=== PATIENT | female | born 1965 | race Caucasian/White ===

== ENCOUNTER 2024-06-24 08:43 | Day surgery (SDC) | payer OTHER ==
[2024-06-18 12:49] VITALS: BMI 21.1
[2024-06-24] MEDS ORDERED: Dexamethasone 4 mg/ml Vial ONE (10:34)
[2024-06-24] MEDS ORDERED: Lidocaine 2% PF 5 ML VIAL ONE (10:34)
[2024-06-24] MEDS ORDERED: Ondansetron PF 4 MG/2 ML Vial ONE (10:34)
[2024-06-24] MEDS ORDERED: fentaNYL 50 mcg/mL 1 mL Vial ONE (10:34)
[2024-06-24] MEDS ORDERED: PROPOFOL 20 ML ONE (10:34)
[2024-06-24] MEDS ORDERED: Bupivacaine PF 0.5% 30 ML VIAL ONE (12:11)
[2024-06-24] MEDS ORDERED: CEFAZOLIN 2 GM VIAL ONE (12:11)
[2024-06-24] MEDS ORDERED: Promethazine HCl 25 MG/ML VIAL IM PRN (12:15)
[2024-06-24] MEDS ORDERED: Ondansetron PF 4 MG/2 ML Vial IVP PRN (12:15)
[2024-06-24] MEDS ORDERED: Zolpidem Tartrate 5 MG TAB PO PRN (12:15)
[2024-06-24] MEDS ORDERED: Ropivacaine 0.2% 550 ML 550 ML NERVE BLCK SCH (12:15)
== END 2024-06-24 16:04 | disposition home health service (06) ==
LOC: CSHSDC 08:43
PROVIDERS: ATTEND Podiatrist Foot & Ankle Surgery
PROC: 0QSP04Z Reposition Left Metatarsal with Internal Fixation Device, Open Approach (ICD-10-PCS; principal; 2024-06-24)
DX: M20.12 Hallux valgus (acquired), left foot (principal); M21.612 Bunion of left foot; Z79.899 Other long term (current) drug therapy
CPT/HCPCS: A4306; C1713; C1769; C1776; J0665; J1100; J2001; J2405; J2704; J2795; J3010